=== PATIENT | male | born 1955 | race Two or more races ===

== ENCOUNTER 2020-03-24 05:27 | Inpatient (IN) | payer OTHER ==
[~2020-03-24] VITALS: Ht 172.7 cm; Wt 93.6 kg
--- NOTE | 2020-03-24 05:27 | NUR ---
Direct Admit Note KARENJULI Bazzi admitted to Telemetry unit as a direct admit from [facility] per MD order. Patient oriented to AGATA PATEL RN primary RN, unit, room, bed, and unit policies regarding patient care and visiting hours. Patient now on continuous telemetry monitoring, tele box #56 and telemetry reading on arrival to unit is sinus rhythm. Patient placed on bedside oxygen, weighed by bed scale and encouraged to call if they need something. All questions and concerns addressed, patient verbalized understanding. MD notified of patients arrival, awaiting admit orders.
--- NOTE | 2020-03-24 05:40 | NUR ---
CONTACTED Paged Dr. Griffith for admission orders.
--- NOTE | 2020-03-24 05:45 | NUR ---
WOUND PICTURES TAKEN FOR REFERENCE.
--- NOTE | 2020-03-24 06:00 | NUR ---
Patient states that he stopped taking all his medications in July.
--- NOTE | 2020-03-24 06:22 | NUR ---
MD CONTACT Second attempt to contact MD. Message left with Dr. Griffith's exchange requesting admission orders.
--- NOTE | 2020-03-24 06:40 | NUR ---
MD CONTACT Received call from Dr. Griffith, instructs to continue all orders from [facility].
[2020-03-24] MEDS ORDERED: ACCU-CHEK COMFORT CURVE STRIP VI SCH ×2 (07:00→08:00)
[2020-03-24] MEDS ORDERED: NITROGLYCERIN 0.4 MG SL TAB SL PRN ×2 (07:00→08:00)
[2020-03-24] MEDS ORDERED: INSULIN LISPRO (HUMAN) 100 UNITS/ML ML SC SCH (07:00)
[2020-03-24] MEDS ORDERED: ATROPINE SULF 1 MG/10ml SYR IV PRN (07:00)
[2020-03-24] MEDS ORDERED: PNEUMOCOCCAL VACC POLYS 25 MCG/0.5 ML VIAL IM ONE (07:15)
[2020-03-24] MEDS ORDERED: DEXTROSE (50%) 50ML SYRG IV PRN (07:45)
[2020-03-24] MEDS ORDERED: ACETAMINOPHEN 325 MG TAB PO PRN (07:45)
[2020-03-24] MEDS ORDERED: MORPHINE SULF INJ 2 MG/ML SYRINGE 1ML IV PRN (07:45)
[2020-03-24] MEDS ORDERED: InsuLIN REG 1unit/0.01ml Soln (100units/ml) SC SCH (08:00)
[2020-03-24 08:19] LABS: Basophils # (auto) 0.1 10 ^3/uL (0-0.2); Basophils % (auto) 0.7 % (0.0-2.0); Eosinophils # (auto) 0.2 10 ^3/uL (0-0.8); Eosinophils % (auto) 2.6 % (0.0-7.0); Hematocrit 51.9 % (41.0-53.0); Hemoglobin 17.6 g/dL (13.5-17.5); Lymphocytes # (auto) 1.4 10 ^3/uL (0.4-5.4); Lymphocytes % (auto) 17.2 % (10.0-50.0); Mean Corpuscular Hemoglobin 31.5 pg (28.0-32.0); Mean Corpuscular Hgb Conc. 33.9 g/dL (32.0-36.0); Mean Corpuscular Volume 92.7 fL (80.0-100.0); Monocytes # (auto) 0.4 10 ^3/uL (0-1.3); Monocytes % (auto) 5.2 % (0.0-12.0); Neutrophils # (auto) 5.9 10 ^3/uL (1.6-8.6); Neutrophils % (auto) 74.3 % (37.0-80.0); Nucleated Red Blood Cells % 0.4 %; Platelet Count (auto) 110 10^3/uL (140-450); Red Cell Distribution Width 14.9 % (11.8-14.3)
[2020-03-24 08:30] VITALS: BP 141/75
--- NOTE | 2020-03-24 08:30 | NUR ---
Patient sitting on side of bed with no complaint of pain or discomfort. Patient stable at this time.
[2020-03-24 09:00] VITALS: BP 141/75
[2020-03-24 09:10] LABS: Albumin 3.6 g/dL (3.4-5.0); Calcium 8.8 mg/dL (8.5-10.1); Potassium 4.5 mmol/L (3.5-5.1)
[2020-03-24 09:13] LABS: BUN/Creatinine Ratio 19.4; Total Protein 8.4 g/dL (6.4-8.2)
[2020-03-24 09:17] LABS: Cholesterol 153 mg/dL (< 200); Triglycerides 265 mg/dL (< 150)
[2020-03-24 09:20] LABS: HDL Cholesterol 26 mg/dL (40-59); LDL Cholesterol 103 mg/dL (< 100)
[2020-03-24] MEDS: ASPirin 81 mg TAB PO SCH (10:34)
[2020-03-24] MEDS: CARVEDILOL 3.125 MG TAB PO SCH ×2 (10:35→22:00)
[2020-03-24] MEDS: MAGNESIUM OXIDE 400 MG TAB PO SCH ×2 (10:37→22:18)
[2020-03-24] MEDS: CLOPIDOGREL BISULFATE 75 MG TAB PO SCH (10:37)
[2020-03-24] MEDS: ENOXAPARIN SOD 100 MG/1 ML SYRINGE SC SCH ×2 (10:38→22:18)
--- NOTE | 2020-03-24 11:35 | NUR ---
Checked blood sugar: 202 mg/dl. Patient NPO for heart cath; no insulin coverage given. Patient stable.
[2020-03-24] MEDS ORDERED: NITR0.4S29 SL (11:59)
[2020-03-24] MEDS ORDERED: CAR3125T PO (12:00)
[2020-03-24] MEDS ORDERED: ATOR20TA50 PO (12:00)
[2020-03-24] MEDS ORDERED: CLOP75TA28 PO (12:00)
[2020-03-24 12:44] VITALS: BP 114/53
--- NOTE | 2020-03-24 12:45 | NUR ---
Nutrition Consult/assessment Note Please see attached link for complete assessment [employer] needs ABW 82 [id number] kcals (23-25 kcal/kgABW), Est Protein needs: 82-90 gms/day (1.0-1.1 gm/kgABW). Will continue to monitor and reassess prn. Addendum: 03/24/20 at [address] Amended: Links added.
--- NOTE | 2020-03-24 14:51 | NUR ---
Assessment Patient is a 64-year-old male who is alert and oriented. Prior to admission patient lived home with family and functioned with assistance. Per patient his Caprice helps him with his ADLs. Per patient he will return home to his prior living arrangements post discharge. Advised patient there is a social service consult for hospice. Per patient he spoke to his and his informed him doctor had arranged everything with [facility]. Patient agrees to be under [facility]. Informed patient he has the right to participate in all discharge planning. Patient verbalized understanding and agreed to discharge plan. [facility] [phone] will arranged hospice care and transportation. Addendum: 03/24/20 at 1452 by JOSELITO FERNANDEZ Amended: Links added.
--- NOTE | 2020-03-24 15:20 | NUR ---
Patient stable with Gifty, wound care nurse at bedside; wound on right, second toe; toenail removed. Wound was cleansed with normal saline, therahoney applied to nailbed, wound covered with bandaid, and coban applied to toe. Patient tolerated well. Patient stable at this time.
--- NOTE | 2020-03-24 15:24 | NUR ---
WOUND CARE NOTE: Wound care in to see patient per wound care request regarding multiple skin integrity issue that are noted present on admission. Bedside nurse took photograph of patient's skin issue upon admission for reference. Patient is 64 years old male with admitting diagnosis of Non STEMI. Patient is resting in bed in Rm. 279B. Patient is awake, alert and oriented. He's self turning and repositioning. His Tyrell score is 18. Patient is in no stated pain at this time. Skin assessment done with the assistance of patient's nurse, DIONNA Lambert at bedside. Patient came in with avulsed toe nail to R 2nd toe. Rt second toe has minimal sanguinous drainage, cleansed with NS,patted dry with gauze,applied Thera honey gel and covered with Band aid, further secured with Coban. Dry scabbed abrasions also noted on patient's L elbow, area is clean and dry,left open to air. Patient also admitted with blanchable erythema to bilateral buttocks however, upon assessment and application of preventative sacral Barrier cream, patient's sacral buttocks erythema is now gone. Patient's sacral, buttocks remain with intact pink,blanchable skin. Patient tolerated well. Patient reported that he thinks, his R 2nd toe nail came off when he had a fall at home prior coming to hospital. DIONNA Lambert at bedside. No further wound care monitoring needed at this time. RECOMMENDATION: Nursing to continue with Daily/PRN dressing change to Rt 2nd toe per MD order,BID/PRN cleaning and application of Barrier cream to sacral,buttocks as preventative, reconsult for active wound, pressure injury, low Tyrell score of 12 and below. Addendum: 03/24/20 at 1755 by Gifty Curran RN Amended: Links added.
--- NOTE | 2020-03-24 16:30 | NUR ---
Patient assisted to and from bedside commode; had bowel movement. Patient sitting on side of bed with no distress noted. Patient stable.
[2020-03-24 17:00] VITALS: BP 137/86
[2020-03-24] MEDS: ACCU-CHEK COMFORT CURVE STRIP VI SCH ×2 (17:23→22:00)
--- NOTE | 2020-03-24 17:23 | NUR ---
Checked blood sugar: 294 mg/dl - will cover per sliding scale. Patient sitting on side of bed.
[2020-03-24] MEDS: InsuLIN REG 1unit/0.01ml Soln (100units/ml) SC SCH ×2 (17:49→22:50)
--- NOTE | 2020-03-24 17:50 | NUR ---
Covered per sliding scale. Patient sitting on side of bed, eating dinner. Stable.
--- NOTE | 2020-03-24 19:30 | NUR ---
Opening Shift Note Assumed care of patient, awake and alert. No S/S of distress/SOB or pain. Patient safety measures in place bed in lowest position, side rails up x2,fall alarm on, and call light within reach. Instructed on POC and to call for assist PRN, will continue to monitor for changes Q1hr and PRN.
--- NOTE | 2020-03-24 20:10 | NUR ---
COVID TEST Patient pending pending [facility] on 03/25/20, In-house COVID test collected and taken to chemistry.
--- NOTE | 2020-03-24 20:35 | NUR ---
Transferred care to Shanel VILLAREAL. Patient alert and oriented free of pain and distress.
--- NOTE | 2020-03-24 20:36 | NUR ---
Opening note Assumed care from DIONNA Lopez. Patient is alert and orientated x4. Bed locked in lowest position. No sob or distress noted. POC reviewed. Patient verbalized understanding. All questions answered. Call light within reach, will continue to monitor q1hr and prn.
[2020-03-24 22:00] VITALS: BP 95/41
[2020-03-24] MEDS ORDERED: ATORVASTATIN 20 MG TAB PO SCH (22:00)
[2020-03-25 05:47] VITALS: BP 117/67
[2020-03-25] MEDS: ACCU-CHEK COMFORT CURVE STRIP VI SCH ×2 (06:20→12:46)
[2020-03-25 06:21] LABS: Basophils # (auto) 0.1 10 ^3/uL (0-0.2); Basophils % (auto) 0.9 % (0.0-2.0); Eosinophils # (auto) 0.3 10 ^3/uL (0-0.8); Eosinophils % (auto) 3.2 % (0.0-7.0); Hematocrit 53.9 % (41.0-53.0); Hemoglobin 17.8 g/dL (13.5-17.5); Lymphocytes # (auto) 1.8 10 ^3/uL (0.4-5.4); Lymphocytes % (auto) 21.5 % (10.0-50.0); Mean Corpuscular Hemoglobin 30.9 pg (28.0-32.0); Mean Corpuscular Hgb Conc. 33.1 g/dL (32.0-36.0); Mean Corpuscular Volume 93.5 fL (80.0-100.0); Monocytes # (auto) 0.5 10 ^3/uL (0-1.3); Monocytes % (auto) 6.1 % (0.0-12.0); Neutrophils # (auto) 5.9 10 ^3/uL (1.6-8.6); Neutrophils % (auto) 68.3 % (37.0-80.0); Nucleated Red Blood Cells % 0.3 %; Platelet Count (auto) 106 10^3/uL (140-450); Red Blood Cells 5.77 10^6/uL (4.5-5.90); Red Cell Distribution Width 15.2 % (11.8-14.3); White Blood Cell 8.6 10^3/uL (4.4-10.8)
[2020-03-25] MEDS: InsuLIN REG 1unit/0.01ml Soln (100units/ml) SC SCH ×2 (06:35→12:47)
[2020-03-25 06:37] LABS: INR 1.05 (0.9-1.15); Partial Thromboplastin Time 32.8 sec (23.0-31.2)
[2020-03-25 07:03] LABS: Calcium 9.2 mg/dL (8.5-10.1); Magnesium 2.7 mg/dL (1.6-2.6); Potassium 3.7 mmol/L (3.5-5.1)
[2020-03-25 07:05] LABS: BUN/Creatinine Ratio 22.2
--- NOTE | 2020-03-25 07:30 | NUR ---
Opening Shift Note Assumed patient care from NOC RN. Patient currently sitting up in bed, feet dangling. No signs of distress at this time. Respirations even and unlabored. Will continue to monitor.
--- NOTE | 2020-03-25 07:50 | NUR ---
Closing note Endorsed care to day shift RN. no sob or distress noted.
[2020-03-25 08:44] VITALS: BP 118/66
--- NOTE | 2020-03-25 08:47 | NUR ---
Polishing Machine Tender Patient taken to chemical laboratory assistant. No signs of distress at this time. Respirations even and unlabored.
[2020-03-25] MEDS ORDERED: MIDAZOLAM HCL 1MG/1ML-2 ML VIAL ONE (09:26)
[2020-03-25] MEDS ORDERED: ANGIOMAX 250 MG VIAL IV ONE (09:26)
[2020-03-25] MEDS ORDERED: fentaNYL CITRATE 100 MCG/2 ML VL ONE (09:26)
[2020-03-25] MEDS ORDERED: SODIUM CHL 0.9% 0 ML ONE (09:26)
[2020-03-25] MEDS ORDERED: IOHEXOL 350 MG/ML 100ML IJ ONE (09:35)
[2020-03-25] MEDS ORDERED: LIDOCAINE 2%HCL (LOCAL ANESTH.) INJ 20ML MDV ONE (09:35)
[2020-03-25] MEDS: ENOXAPARIN SOD 100 MG/1 ML SYRINGE SC SCH (10:00)
[2020-03-25] MEDS: CARVEDILOL 3.125 MG TAB PO SCH (10:00)
[2020-03-25] MEDS: MAGNESIUM OXIDE 400 MG TAB PO SCH (10:00)
[2020-03-25] MEDS: ASPirin 81 mg TAB PO SCH ×2 (10:00→12:45)
[2020-03-25] MEDS: CLOPIDOGREL BISULFATE 75 MG TAB PO SCH ×2 (10:00→12:46)
--- NOTE | 2020-03-25 10:46 | NUR ---
Report Received report from laborer high density press RN.
--- NOTE | 2020-03-25 11:00 | NUR ---
Patient Arrived Patient arrived to unit from lab animal technician. No signs of distress noted at this time. Right groin incision dressing is clean, dry and intact with no evidence of bleeding or hematoma. Safety precautions in place, patient to maintain flat until 1230. Will continue to monitor.
[2020-03-25 13:00] VITALS: BP 105/73
--- NOTE | 2020-03-25 14:00 | NUR ---
REBECCA Spoke with Uzma regarding patient's home hospice. Per Uzma, hospice to assist patient and patient's with ADLS (per Dr. Trujillo, hospice "will visit patient at least 5 days per week." Per Annel Gusman hospice set up by and patient's . Transport to waste picker patient for discharge. Addendum: 03/25/20 at 1836 by MICHEL ORTIZ RN RN Patient is aware and agreeable to hospice.
[2020-03-25 16:14] VITALS: BP 105/73
[2020-03-25 16:44] VITALS: BP 126/71
--- NOTE | 2020-03-25 17:06 | NUR ---
Discharge Discharge instructions given as ordered. Encourage to follow up with PMD as instructed. All questions and concerns addressed. Patient verbalized understanding. Medication reconciliation form completed and copy given to patient. IV removed with catheter intact, pressure dressing applied. Telemetry unit returned to ICU. Photos of wounds obtained. Patient taken to vehicle via wheelchair with all personal belongings, accompanied by staff. Patient discharge packet/instructions explained to patient. Patient understands and is aware of home hospice set up for home. Transport services to take patient home, patient confirmed home address; family is aware of discharge and patient ETA. No distress noted at time of departure.
== END 2020-03-25 17:06 | disposition hospice, home (50) | DRG 281 ==
LOC: INTOOBSV 05:27 → TELE-WESTW 05:27 → OBSVTOIN 05:27
PROVIDERS: ADMIT Internal Medicine Cardiovascular Disease; ATTEND Internal Medicine Cardiovascular Disease
PROC: B2131ZZ Fluoroscopy of Multiple Coronary Artery Bypass Grafts using Low Osmolar Contrast (ICD-10-PCS; principal; 2020-03-25)
PROC: B2111ZZ Fluoroscopy of Multiple Coronary Arteries using Low Osmolar Contrast (ICD-10-PCS; 2020-03-25)
PROC: B2181ZZ Fluoroscopy of Left Internal Mammary Bypass Graft using Low Osmolar Contrast (ICD-10-PCS; 2020-03-25)
PROC: B2151ZZ Fluoroscopy of Left Heart using Low Osmolar Contrast (ICD-10-PCS; 2020-03-25)
PROC: B3101ZZ Fluoroscopy of Thoracic Aorta using Low Osmolar Contrast (ICD-10-PCS; 2020-03-25)
DX: I21.4 Non-ST elevation (NSTEMI) myocardial infarction (principal); I50.22 Chronic systolic (congestive) heart failure; I11.0 Hypertensive heart disease with heart failure; I48.91 Unspecified atrial fibrillation; K21.9 Gastro-esophageal reflux disease without esophagitis; M19.90 Unspecified osteoarthritis, unspecified site; E11.21 Type 2 diabetes mellitus with diabetic nephropathy; E11.40 Type 2 diabetes mellitus with diabetic neuropathy, unspecified; E78.5 Hyperlipidemia, unspecified; I25.5 Ischemic cardiomyopathy; Z20.828 Contact with and (suspected) exposure to other viral communicable diseases; D75.1 Secondary polycythemia; I25.10 Atherosclerotic heart disease of native coronary artery without angina pectoris; J44.9 Chronic obstructive pulmonary disease, unspecified; Z95.1 Presence of aortocoronary bypass graft
CPT/HCPCS: 36415; 43255; 71045; 75600; 80048; 80053; 80061; 82962; 83036; 83735; 84484; 85025; 85610; 85730; 86850; 86900; 86901; 87081; 96372; 99152; 99153; G0378; J1815; J2250